=== PATIENT | male | born 1970 | race Hispanic/Latino ===

== ENCOUNTER 2017-07-20 13:18 | Emergency (ER) | payer SELFPAY ==
[~2017-07-20] VITALS: Ht 157.5 cm; Wt 77.6 kg
--- NOTE | 2017-07-20 15:59 | Diagnostic Imaging Report ---
EXAM: FINGER LEFT DATE: 07/20/2017 2:33 PM INDICATION: Pain COMPARISON: None FINDINGS: Nail traverses distal aspect of the index proximal finger with longitudinal fracture of the proximal phalanx present. IMPRESSION: Nail traverses index proximal finger with longitudinal fracture. Signed by: Dr. Cristino Hines MD on 07/20/2017 3:55 PM
[2017-07-20] MEDS ORDERED: BUPIVACAINE HCL 0.5% 10ML MPF VIAL INJ ONE (16:45)
[2017-07-20] MEDS ORDERED: CLINDAMYCIN HCL 150 MG CAP PO ONE (17:30)
[2017-07-20 17:41] VITALS: BP 160/88
== END 2017-07-20 18:13 | disposition home or self-care (01) ==
LOC: ER 13:18
DX: S62.512B Displaced fracture of proximal phalanx of left thumb, initial encounter for open fracture (principal); S61.241A Puncture wound with foreign body of left index finger without damage to nail, initial encounter; W29.4XXA Contact with nail gun, initial encounter; Y99.0 Civilian activity done for income or pay
CPT/HCPCS: 99283